=== PATIENT | male | born 1980 | race Caucasian/White ===

== ENCOUNTER 2017-02-11 12:00 | Inpatient (IN) | payer BC, OTHER ==
[~2017-02-11] VITALS: Ht 182.9 cm; Wt 74.8 kg
[2017-02-11] MEDS ORDERED: OLANZAPINE 5 MG TABLET PO ONE (12:15)
[2017-02-11] MEDS ORDERED: LORAZEPAM 0.5 MG TABLET PO ONE (12:15)
--- NOTE | 2017-02-11 12:26 | NUR ---
Patient is AOx4, refused olanzapine- MD notfied. 'I don't need a mood stabilizer." per patient's verbalization
[2017-02-11] MEDS ORDERED: OLANZAPINE 5 MG TABLET ONE (12:35)
[2017-02-11] MEDS ORDERED: LORAZEPAM 1 MG TABLET ONE (12:35)
[2017-02-11 13:06] LABS: BASOPHILS % (AUTO) 0.5 % (0.0-2.0); EOSINOPHILS % (AUTO) 0.6 % (0.0-7.0); HEMOGLOBIN 16.6 G/DL (14.0-18.0); LYMPHOCYTES # (AUTO) 1.3 K/UL (0.8-4.8); MEAN CORPUSCULAR HEMOGLOBIN 31.3 UUG (27.0-31.0); MEAN CORPUSCULAR HGB CONC 34 g/dL (32.0-37.0); MEAN CORPUSCULAR VOLUME 92.4 FL (82.0-92.0); MONOCYTES # (AUTO) 0.3 K/UL (0.1-1.30); NEUTROPHILS # (AUTO) 2.9 K/UL (1.8-8.9); NEUTROPHILS % (AUTO) 63.9 % (38.5-71.5); PLATELET COUNT (AUTO) 224 K/UL (150-450); WHITE BLOOD COUNT (AUTO) 4.5 K/UL (4.0-11.2)
[2017-02-11 13:10] LABS: CARBON DIOXIDE 27 mmol/L (21-32); CHLORIDE 103 mmol/L (98-107); CREATININE 0.9 mg/dL (0.6-1.3); GLUCOSE 123 mg/dL (74-106); POTASSIUM 3.8 mmol/L (3.5-5.1); UREA NITROGEN, BLOOD 14 mg/dL (7-18)
--- NOTE | 2017-02-11 13:12 | NUR ---
CALLED [facility] PER PT REQUEST.
[2017-02-11 13:17] LABS: ALANINE AMINOTRANSFERASE 27 U/L (16-63); ALKALINE PHOSPHATASE 69 U/L (50-136); ASPARTATE AMINOTRANSFERASE 17 U/L (15-37); BILIRUBIN,DIRECT 0.1 mg/dL (0.0-0.2); BILIRUBIN,TOTAL 0.6 mg/dL (0.2-1.0); TOTAL PROTEIN, SERUM 7.5 g/dL (6.4-8.2)
[2017-02-11 13:18] LABS: ACETAMINOPHEN < 2.0 ug/mL (10-30)
[2017-02-11 13:19] LABS: ETHANOL < 3 MG/DL (0-0)
--- NOTE | 2017-02-11 14:45 | NUR ---
COLUMBA FROM [facility] AT BEDSIDE TALKING TO PT AND FATHER.
--- NOTE | 2017-02-11 15:35 | NUR ---
Patient discharged to [facility] in stable conditon. Written and verbal after care instructions given. Patient verbalizes understanding of instructions.PT AND FATHER HAPPY THAT THE PT IS GOING TO [facility].
[2017-02-11] MEDS ORDERED: MAG HYDROX/AL HYDROX/SIMETH 30 ML LIQUID UDC PO PRN (16:00)
[2017-02-11] MEDS ORDERED: ONDANSETRON 4 MG/2 ML VIAL IM PRN (16:00)
[2017-02-11] MEDS ORDERED: LORAZEPAM 2 MG/1 ML VIAL IM PRN (16:00)
[2017-02-11] MEDS ORDERED: CLONIDINE HCL 0.1 MG TABLET PO PRN (16:00)
[2017-02-11] MEDS ORDERED: MAGNESIUM HYDROXIDE 30 ML LIQUID UDC PO PRN (16:00)
[2017-02-11] MEDS ORDERED: IBUPROFEN 400 MG TABLET PO PRN (16:00)
[2017-02-11] MEDS ORDERED: ONDANSETRON ODT 4 MG TAB.RAPDIS SL PRN (16:00)
[2017-02-11] MEDS ORDERED: HYDROXYZINE PAMOATE 25 MG CAPSULE PO PRN (16:00)
[2017-02-11] MEDS ORDERED: MIRALAX 17 GM POWD.PACK PO PRN (16:00)
[2017-02-11] MEDS ORDERED: LOPERAMIDE HCL 2 MG CAPSULE PO PRN ×2 (16:00)
[2017-02-11] MEDS ORDERED: diphenhydrAMINE 50 MG CAPSULE PO PRN (16:00)
[2017-02-11] MEDS ORDERED: THIAMINE HCL 200 MG/2 ML VIAL IM ONE (16:00)
[2017-02-11] MEDS ORDERED: ACETAMINOPHEN 325 MG TABLET PO PRN (16:00)
[2017-02-11] MEDS ORDERED: DICYCLOMINE HCL 20 MG TABLET PO PRN (16:00)
--- NOTE | 2017-02-11 16:45 | NUR ---
Pre-admission Assessment Pt has been cleared by ER and declared competent to sign consent necessary for the admission process. Pt states wanting to be admitted for detox and verbalizes understanding of the detox process. PT's VS are as follows: HR: 77, BP: 107/78, RR: 14, SpO2 97%, T:98.1. Pt's skin is intact and reports readiness to detox.
[2017-02-11 17:34] LABS: *AMPHETAMINE, URINE POSITIVE (NEGATIVE); *BARBITURATE, URINE NEGATIVE (NEGATIVE); *CANNABINOID, URINE POSITIVE (NEGATIVE); *COCCAINE, URINE NEGATIVE (NEGATIVE); *OPIATE, URINE NEGATIVE (NEGATIVE); *PHENCYCLIDINE SCREEN,URINE NEGATIVE (NEGATIVE)
[2017-02-11 17:36] LABS: *BILIRUBIN,URIN NEGATIVE (NEGATIVE); *BLOOD, URINE NEGATIVE (NEGATIVE); *CLARITY,URINE CLEAR (CLEAR); *COLOR,URINE YELLOW (YELLOW); *KETONES,URINE NEGATIVE (NEGATIVE); *PROTEIN,URINE NEGATIVE (NEGATIVE); *UROBILINOGEN,URINE 0.2 E.U./dl (NORMAL); LEUKOCYTE ESTERASE ,URINE NEGATIVE (NEGATIVE); NITRITE, URINE NEGATIVE (NEGATIVE); PH,URINE 6.5 (5.0-8.0); UGLUCOSE NEGATIVE (NEGATIVE)
[2017-02-11 17:53] LABS: BACTERIA,URINE NONE SEEN /HPF (NONE SEEN); RBC,URINE NONE SEEN /HPF (0-3); SQUAMOUS EPITHELIAL CELL,UR FEW /HPF (NONE SEEN); WBC,URINE 0-3 /HPF (0-3)
--- NOTE | 2017-02-11 19:45 | NUR ---
Start of Shift Note: Patient is 36yo male admitted to [facility] today after being medically cleared in [facility] ED. Patient is currently on a 1:1 for safety, patient is acutely intoxicated, noted to be unable to sit still and pacing the hallways. Upon assessment, patient's speech is clear, but tangential and non-linear. When asked why he was at [facility], patient is unable to answer in a coherent manner. Will continue to monitor for safety and complete admission when patient is able to appropriately answer admission questions. Addendum: 02/12/17 at 0111 by SHEMAR PACHECO RN Patient received 2mg Ativan in ED
--- NOTE | 2017-02-11 19:59 | NUR ---
Vitals Refused: PACKAGE DYER attempted to take patient's BP, and patient became combative.
--- NOTE | 2017-02-11 20:00 | NUR ---
MD Communication/Crisis Team/Behavioral Note: BRAND ADVOCATE reports that patient becoming increasingly agitated, pacing hallways, making references to an incident last night that involved "all of you people" and the [employer]. BRAND ADVOCATE attempted to take patient's BP, and when he heard the cuff open, he yelled at the BRAND ADVOCATE, "You are one of those people!". Patient repeatedly reassured that we were not the police and that we were not calling the police, and that he was not going to half-way. Patient left his room, and became confrontational with other staff members and clients. Crisis Team was called for evaluation and Dr Peacock called for orders. Pati Castro called and patient attempted to leave unit after running into elevator. Order received from Dr Peacock at 20:45 for Zyprexa 10mg IM and Ativan 2mg IM. Cecilia from Crisis Team and [facility] Nursing Oliving Machine Operator on unit for evaluation. Patient repeatedly making statements regarding the police, that [facility] staff were involved in a conspiracy against him, about various lawsuits, and photos of him of a sexual nature that "you people have seen." Patient voluntarily returned to room and consented to receive IM injection of Zyprexa and Ativan.
[2017-02-11] MEDS ORDERED: OLANZAPINE 10 MG VIAL IM ONE ×2 (21:00→21:04)
[2017-02-11] MEDS ORDERED: LORAZEPAM 2 MG/1 ML VIAL IM ONE (21:00)
[2017-02-11] MEDS ORDERED: LORAZEPAM 2 MG/1 ML VIAL ONE (21:05)
--- NOTE | 2017-02-11 21:05 | NUR ---
Ativan 2mg and Zyprexa 10mg IM ONCE: See previous nursing note for behavioral issue. Patient verbalizes consent to receive medication and verbalizes understanding of purpose of medication. Zyprexa 10mg IM and Ativan 2mg IM administered as ordered.
--- NOTE | 2017-02-11 21:40 | NUR ---
Ativan/Zyprexa Reassessment: Patient is in bed with eyes closed. Respirations are even and unlabored at 22. No s/s of acute distress noted. Spo2 on RA is 97%. Patient placed on continuous Spo2/HR/RR monitoring for safety. Side rails up x2 and padded. Patient continues on 1:1 with TAIL TRIMMER. Will continue to monitor.
--- NOTE | 2017-02-12 | NUR ---
BP refused: Patient in bed with eyes closed. Respirations are even and unlabored at 16. No s/s of acute distress noted. Spo2 on RA is 96-97% and HR 70-74. Patient pulls arm away when attempting to place BP cuff on arm. All safety precautions are in place. Will continue to monitor.
[2017-02-12 04:00] VITALS: BP 141/85
--- NOTE | 2017-02-12 04:00 | NUR ---
Behavioral Note: Patient awake, is A&Ox4. V/S: 98.5, 69, 16, 100%, 141/85. Patient denies pain at this time. Patient requesting to go to the patio to smoke; pt informed that administration must approve patio privilege. Patient states, "You all don't know what I've been through the past two days. The police were in the Emergency Room downstairs, and they demanded all types of fluids from me, and they took my urine out of the toilet for the test. The police held me down and restrained me, and forced me to breathe a certain way. What you don't know is that there is a small subset of staff operating within [facility] and they have been running surveillance on me." Administration and Crisis Team contacted at 04:40. Art from Crisis Team [facility].
--- NOTE | 2017-02-12 05:15 | NUR ---
Crisis Eval: Art from Crisis Team on the unit at 05:15 to evaluate patient. Patient does not meet criteria for hold, recommends contacting psych for Zyprexa and Ativan d/t drug-induced psychosis. Patient states that he wants to stay at [facility] and will take Zyprexa and Ativan.
--- NOTE | 2017-02-12 05:41 | NUR ---
Ativan 2mg PO ONCE: Patient noted to be agitated, pacing the halls. Patient complains of severe anxiety. Administered Ativan 2mg PO ONCE as per Dr Sweeney order.
[2017-02-12] MEDS ORDERED: LORAZEPAM 1 MG TABLET PO ONE (05:45)
[2017-02-12] MEDS ORDERED: LORAZEPAM 1 MG TABLET ONE ×2 (05:49→05:50)
[2017-02-12] MEDS ORDERED: OLANZAPINE 10 MG VIAL IM ONE ×2 (06:00→06:12)
--- NOTE | 2017-02-12 06:07 | NUR ---
Zyprexa 10mg IM ONCE: Administered Zyprexa 10mg IM as per order by Dr Peacock for drug-induced psychosis. Patient consents to medication administration and verbalizes understanding of medication indication and A/R. Patient states, "I know that I am having trouble distinguishing between what is real and what's not."
--- NOTE | 2017-02-12 07:05 | NUR ---
Reassessment: Patient states that he is feeling drowsy, and that he recognizes he is sometimes having difficulty distinguishing what is real or not.
--- NOTE | 2017-02-12 07:10 | NUR ---
Start of shift note SBAR report rcv'd. Pt was admitted for suspected methamphetamine dependence. Pt has been unable to provide a history due to his unstable mental condition. Per report, pt has been evaluated by crisis team and determined to not be Eligible to be placed on a hold. Pt is on a 1:1 at this time for safety d/t his confusion. Pt has no complaints at this time. Will continue to monitor pt. All needs addressed at this time.
--- NOTE | 2017-02-12 07:15 | NUR ---
End of Shift Note: Patient is a 36 y/o male admitted to [facility] on 02/11/17 for medically-supervised withdrawal from methamphetamine salts; patient currently with meth-induced psychosis. Patient is on 1:1 for safety. Patient had two behavioral incidents throughout the night, and Crisis Team was called for both incidents. Ativan 2mg IM and Zyprexa 10mg IM was given at start of shift for psychosis; Ativan 2mg PO and Zyprexa 10mg IM was given again in the morning for psychosis. V/S stable throughout shift. Total fluid intake this shift: 878 ml; output: urine x 3 and BM x 2. Pt is currently in bed and slept 5 hours this shift. All needs have been attended and met. Pt endorsed to day shift nurse.
--- NOTE | 2017-02-12 07:37 | NUR ---
PRN administration Pt c/o headache 10/29. Administered tylenol PRN per MD order. Will continue to monitor pt.
[2017-02-12 08:00] VITALS: BP 137/81
--- NOTE | 2017-02-12 08:04 | NUR ---
MD communication Pt noted to have a HR of 116, Dr Sweeney notified, ordered EKG, orders entered, unable to enter orders.
--- NOTE | 2017-02-12 08:30 | NUR ---
MD communication Notified Dr Sweeney about EKG results, NNO.
--- NOTE | 2017-02-12 08:37 | NUR ---
PRN reassessment Pt states that the tylenol alleviated his headache. Pt reports pain level of 0/10.
[2017-02-12] MEDS: DOCUSATE SODIUM 250 MG CAPSULE PO SCH (08:44)
[2017-02-12] MEDS: THIAMINE HCL 100 MG TABLET PO SCH (08:49)
[2017-02-12] MEDS: MULTIVITAMINS,THERAPEUTIC TABLET PO SCH (08:49)
[2017-02-12] MEDS: FOLIC ACID 1 MG TABLET PO SCH (08:49)
[2017-02-12] MEDS ORDERED: TUBERCULIN,PURIF.PROT.DERIV. 5 TU/0.1 ML TEST ID ONE (09:00)
--- NOTE | 2017-02-12 10:34 | NUR ---
Admission information Pt continues to be a poor historian, however pt was able to report the following information: Pt states that he is being admitted to "get off of the stuff and let my brain heal". Pt states that he has a heart murmur, states he saw a doctor for it when he was a child and that it is not an issue at this time. Pt states that he has been hospitalized for meth induced psychosis before, unable to give specific dates or names of hospitals. Pt reports that he has been using methamphetamine for the last week, pt reports that he takes it PO, but the last time he used it, he inserted it rectally because he thought someone was trying to take it from him. Pt stated that he took 09/05 of $140 worth of methamphetamine yesterday rectally. Pt also reports that he drinks 1-2 beer occasionally, unable to recall the last time he drank alcohol. Pt states that he has been to senior care before. Pt states that he does not want his pneumococcal vaccine. Pt states that he does not have a PCP, states "I have medi-pura, I just see any dr when I want to". Pt states that he has been to detox before, unable to recall dates/names of places. Pt states that he was sober from 01/2010-06/2014. Pt continues on 1:1 for safety, pt denies hallucinations or SI/HI at this time. Will continue to monitor pt.
--- NOTE | 2017-02-12 12:00 | NUR ---
VS refusal Pt refused VS, pt wants to sleep. 1:1 sitter at bedside. Will continue to monitor pt.
--- NOTE | 2017-02-12 14:00 | NUR ---
MD communication Pt is AxOx4, pt denies any hallucinations. Dr Peacock gave ok for 1:1 sitter to be d/c'd. Pt is sleeping in bed, pt verbalized his understanding of call light system. Will continue to monitor pt.
[2017-02-12 16:00] VITALS: BP 106/62
--- NOTE | 2017-02-12 19:04 | NUR ---
End of shift note pt was admitted for methamphetamine abuse. Pt has a PMH of a childhood heart murmur. Pt has no complaints at this time. Pt had one PRN dose of tylenol at 0730 for a headache, which was effective. Pt slept most of the shift. VS are WNL. Pt drank 2083ml of fluids, voided x 2, ate 100% of breakfast and dinner. Pt slept during lunch. Will endorse SBAR to oncoming shift.
--- NOTE | 2017-02-12 19:45 | NUR ---
START OF SHIFT Received report from day shift nurse. Pt is lying in bed resting and is arousable to verbal stimulation. He is a 36 yo male admitted to [facility] on 02/11 for methamphetamine dependence. He is alert and ambulatory. Allergic to PCN's, full code status, and on a regular diet. He has a PMH of heart murmur as a child. On admission he admitted to using methamphetamine unknown amounts for 1 week. PRN medications available. Pt has moist skin. His mood is appropriate. He is lying comfortably in bed with call light in reach. Fall precautions in place.
[2017-02-12 20:00] VITALS: BP 102/55
[2017-02-12] MEDS ORDERED: OLANZAPINE 5 MG TABLET PO PRN (21:15)
--- NOTE | 2017-02-12 21:17 | NUR ---
Psychiatrist Communication Dr. Peacock ordered Zyprexa PRN for patient. is unable to enter orders at this time. Verified and read back.
[2017-02-13] VITALS: BP 99/62
[2017-02-13 04:00] VITALS: BP 111/66
--- NOTE | 2017-02-13 07:09 | NUR ---
END OF SHIFT Report provided to day shift nurse. Pt returned to his room after smoking a cigarette. When asked how he is feeling this morning he replies "much better, thanks". He is a 36 yo male admitted to [facility] on 02/11 for methamphetamine dependence. He is A&O x4 and ambulatory. Allergic to PCN's, full code status, and on a regular diet. He has a PMH of heart murmur as a child. On admission he admitted to using methamphetamine unknown amounts for 1 week. PRN medications available. Pt slept well throughout the shift. No PRN's administered. He drank 1387 and slept for [address] hours[address] Fall precautions in place.
--- NOTE | 2017-02-13 07:15 | NUR ---
Start of shift note SBAR report rcv'd. Pt was admitted for methamphetamine abuse. Pt has a PMHx of a childhood heart murmur. Pt denies any other medical history. Per report pt slept most of the night. Pt is currently resting in bed, pt has no complaints at this time. Bed is locked in a low position, call light within reach. All needs addressed at this time. Will continue to monitor pt.
[2017-02-13 08:00] VITALS: BP 110/61
[2017-02-13] MEDS: FOLIC ACID 1 MG TABLET PO SCH (09:00)
[2017-02-13] MEDS: DOCUSATE SODIUM 250 MG CAPSULE PO SCH (09:00)
[2017-02-13] MEDS: MULTIVITAMINS,THERAPEUTIC TABLET PO SCH (09:00)
[2017-02-13] MEDS: THIAMINE HCL 100 MG TABLET PO SCH (09:00)
--- NOTE | 2017-02-13 09:00 | NUR ---
Medication held Pt requested to continue sleeping and states that he does not want to take his AM meds. Will continue to monitor pt. All needs addressed at this time.
[2017-02-13 12:00] VITALS: BP 128/58
[2017-02-13 13:50] LABS: *AMPHETAMINE, URINE POSITIVE (NEGATIVE); *BARBITURATE, URINE NEGATIVE (NEGATIVE); *CANNABINOID, URINE POSITIVE (NEGATIVE); *COCCAINE, URINE NEGATIVE (NEGATIVE); *OPIATE, URINE NEGATIVE (NEGATIVE); *PHENCYCLIDINE SCREEN,URINE NEGATIVE (NEGATIVE)
[2017-02-13 16:00] VITALS: BP 130/69
--- NOTE | 2017-02-13 18:56 | NUR ---
End of shift note - Pt was admitted for methamphetamine abuse. Pt reports and allergy to PCN. Pt is a full code and on a regular diet. Pt has a PMHx of a childhood heart murmur. Pt denies any other medical history. Per report pt slept most of the shift and reports that he is "feeling much better than before." Pt was able to recall his prior poor behavior and is able to recognize that it was inappropriate. Pt continues to deny any hallucinations and continues to be AxOx4 throughout the shift. Pt ate 100% of all meals, drank 1300ml of fluids and had 3 voids during the shift. Pt is currently resting in bed, pt has no complaints at this time. Bed is locked in a low position, call light within reach. All needs addressed at this time. Will endorse SBAR to oncoming shift.
--- NOTE | 2017-02-13 19:48 | NUR ---
START OF SHIFT NOTE Pt is a 36 y/o male admitted for Meth and Beer dependence and use. Pt has an allergy to PCN and reported a PMH of a heart murmur that was corrected as a child. Per day shift nurse pt is not on a taper but has PRN medications available for any pain/discomfort. Pt didn't receive any PRNS during the day shift. At this time pt is asleep in bed with no signs of discomfort/distress noted. Breathing is even and unlabored. All safety measures in place; side rails up x 2, bed locked and in low position and call light within reach. Will continue to monitor.
[2017-02-13 20:00] VITALS: BP 120/71
--- NOTE | 2017-02-14 | NUR ---
VITALS REFUSED Pt refused to be assessed and have vitals taken at this time. Pt was encouraged x 3 with risks and benefits explained but the pt still refused. All safety measures in place. Will continue to monitor. Addendum: 02/14/17 at 0604 by ELENA BENJAMIN LVN Amended: Links added.
--- NOTE | 2017-02-14 | NUR ---
VITALS REFUSED Pt refused to be assessed and have vitals taken at this time. Pt was encouraged x 3 with risks and benefits explained, but the pt still refused. All safety measures in place. Will continue to monitor. Addendum: 02/14/17 at 0018 by ELENA BENJAMIN LVN Amended: Links added.
--- NOTE | 2017-02-14 04:00 | NUR ---
VITALS REFUSED Pt refused to be assessed and have vitals taken at this time. Pt was encouraged x 3 with risks and benefits explained but the pt still refused. All safety measures in place. Will continue to monitor.
--- NOTE | 2017-02-14 07:04 | NUR ---
END OF SHIFT NOTE Pt is a 36 y/o male admitted for Meth and Beer dependence and use. Pt has an allergy to PCN and reported a PMH of a heart murmur that was corrected as a child. Pt is not on a taper but has PRN medications available for any pain/discomfort. Pt didn't receive any PRNS during the shift. Pt slept for a total of 9 hours. All safety measures in place; side rails up x 2, bed locked and in low position and call light within reach. Will endorse to the oncoming nurse.
--- NOTE | 2017-02-14 07:40 | NUR ---
START OF SHIFT NOTE Received report from night nurse, 36 year old male admitted to [facility] on 02/11 for methamphetamine dependence. Allergic to PCN, full code status, and on a regular diet. Pt reported a PMH of heart murmur as a child. On admission he admitted to using methamphetamine unknown amounts for 1 week. Pt currently not on any taper but, PRN medications available for s/s of withdrawal. Pt did not receive any PRN medication, slept for 9 hours. Currently pt is resting in his room alert oriented x4, denies any pain or discomfort. Educated patient regarding plan of care for the day, medication regimen. All safety measures in place, call light within reach. Will cont to monitor.
[2017-02-14 08:00] VITALS: BP 116/64
[2017-02-14] MEDS: FOLIC ACID 1 MG TABLET PO SCH (08:25)
[2017-02-14] MEDS: MULTIVITAMINS,THERAPEUTIC TABLET PO SCH (08:25)
[2017-02-14] MEDS: THIAMINE HCL 100 MG TABLET PO SCH (08:25)
[2017-02-14] MEDS: DOCUSATE SODIUM 250 MG CAPSULE PO SCH (08:25)
[2017-02-14 12:00] VITALS: BP 129/81
--- NOTE | 2017-02-14 12:58 | NUR ---
DISCHARGE NOTE Pt is 36 year old male admitted to [facility] on 02/11 for methamphetamine dependence. Vital signs WNL. Pt states that he has no pain, discomfort or s/s of withdrawal. Denies any thoughts of suicide. Pt states that he feels ready for discharge. Verbalized his understanding of the discharge instructions. Pt discharge instructions and valuable secured in duffle bag then given to DEMAND GENERATOR MANAGER. All belongings returned to pt. Pt ID band removed, Pt ambulated off of unit. Pt left via [facility] transport via [facility].
== END 2017-02-14 12:30 | disposition other institution (70) | DRG 895 ==
LOC: ER 12:05 → SRC 15:41
PROVIDERS: ADMIT Internal Medicine; ATTEND Internal Medicine
PROC: HZ2ZZZZ Detoxification Services for Substance Abuse Treatment (ICD-10-PCS; principal; 2017-02-11)
PROC: HZ41ZZZ Group Counseling for Substance Abuse Treatment, Behavioral (ICD-10-PCS; 2017-02-12)
PROC: HZ31ZZZ Individual Counseling for Substance Abuse Treatment, Behavioral (ICD-10-PCS; 2017-02-14)
DX: F15.250 Other stimulant dependence with stimulant-induced psychotic disorder with delusions (principal); F17.210 Nicotine dependence, cigarettes, uncomplicated; F15.23 Other stimulant dependence with withdrawal
CPT/HCPCS: 36415; 70030-TC; 71010; 80307; 80324; 80349; 85025; 93005; A4663; G0480; G0480-TC; J2060; J2358